=== PATIENT | male | born 1995 | race Caucasian/White ===

== ENCOUNTER 2019-01-15 21:45 | Emergency (ER) | payer SELFPAY ==
[~2019-01-15] VITALS: Ht 188 cm; Wt 90.7 kg
--- NOTE | 2019-01-15 21:50 | NUR ---
ED Nurse Note: Pt found on the ground outside of restaurant in pool of emesis. A&Ox3. Pt VSS, on room air no distress, homeless. ERMD seen Pt at bedside.
--- NOTE | 2019-01-15 22:23 | Emergency Room Report ---
History of Present Illness General Chief Complaint: Overdose Source: EMS Present Illness HPI Is a 23-year-old male with no past medical history. Patient presents with chief complaint of alcohol intoxication. He was outside of a restaurant and was vomiting. He has a alcohol near him. Someone called 911. Here patient initially was combative and yelling. Then he went to sleep. History is otherwise limited on this patient. There is no trauma. There was vomitus on his shirt. He admits to drinking tonight. Allergies: Coded Allergies: No Known Allergies (Unverified , 01/15/19) Patient History Past Medical History: see triage record, old chart reviewed Past Surgical History: unable to obtain Pertinent Family History: unable to obtain Social History: Reports: alcohol use Immunizations: other Reviewed Nursing Documentation: PMH: Agreed; PSxH: Agreed Nursing Documentation-PMH Past Medical History: No Stated History Review of Systems All Other Systems: limited - Limited by his intoxication Physical Exam Vital Signs Date Time Temp Pulse Resp B/P (MAP) Pulse Ox O2 Delivery O2 Flow Rate FiO2 01/15/19 21:40 98.8 81 12 140/82 (101) 98 Room Air Vitals normal Sp02 EP Interpretation: reviewed, normal General Appearance: well appearing, alert, other - Intoxicated Head: normocephalic, atraumatic Eyes: bilateral eye PERRL, bilateral eye EOMI ENT: hearing grossly normal, normal pharynx Neck: full range of motion, supple, no meningismus Respiratory: chest non-tender, lungs clear, normal breath sounds Cardiovascular #1: regular rate, rhythm, no murmur Gastrointestinal: normal bowel sounds, non tender, no mass, no organomegaly, no bruit, non-distended Musculoskeletal: back normal, gait/station normal, normal range of motion Psychiatric: mood/affect normal Medical Decision Making Diagnostic Impression: Primary Impression: Alcohol intoxication Qualified Codes: F10.920 - Alcohol use, unspecified with intoxication, uncomplicated ER Course Patient with alcohol intoxication. He is improving slowly. Is able to stand up and urinate in the urinal. He promptly went back to sleep. No evidence of any trauma to warrant x-ray or CT scan. Will observe until clinical sobriety. Will discharge home afterward. Last Vital Signs Date Time Temp Pulse Resp B/P (MAP) Pulse Ox O2 Delivery O2 Flow Rate FiO2 01/15/19 21:40 98.8 81 12 140/82 101 98 Room Air Status: improved Disposition: HOME, SELF-CARE Condition: Stable Additional Instructions: Follow up with your doctor in 7 days. Abstain from alcohol. Return if worse. Roland Bowling MD Jan 15, 2019 22:23
[2019-01-15 22:30] VITALS: BP 134/68
[2019-01-16 00:39] VITALS: BP 133/71
--- NOTE | 2019-01-16 00:40 | NUR ---
ED Nurse Note: Pt awake and pee on floor, house keeper notified and clean Pt.
[2019-01-16 02:38] VITALS: BP 128/79
--- NOTE | 2019-01-16 02:39 | NUR ---
ED Nurse Note: Pt asleep when visited, VSS.
--- NOTE | 2019-01-16 02:50 | NUR ---
ED Nurse Note: Received patient from SANAZ Hernandez, patient at no distress at this time and is sleeping in bed.
--- NOTE | 2019-01-16 04:38 | NUR ---
ED Nurse Note: Patient sleeping calmly in bed in no distress
[2019-01-16 05:30] VITALS: BP 120/73
--- NOTE | 2019-01-16 05:35 | NUR ---
Homeless Discharge: Patient is being discharged from medical care. Awake, alert and oriented x3. After care instructions, including referral to community resources were given. Patient verbalized understanding of After care instructions; at this time patient does not request medications, equipment or placement. Patient signed patient consent in the medical record for patient destination upon discharge. All medical devices such as ID band were removed. Patient ambulated out with all personal belongings with steady gait.
== END 2019-01-16 05:30 | disposition home or self-care (01) ==
LOC: EDBD 21:45 → EMR 22:19
DX: F10.920 Alcohol use, unspecified with intoxication, uncomplicated (principal)
CPT/HCPCS: 99283

== ENCOUNTER → 2020-01-22 | Emergency (ER) | payer OTHER, SELFPAY ==
[~2020-01-22] VITALS: Ht 182.9 cm; Wt 83.9 kg
[~2020-01-22] MED LIST: Bacitracin Oint UD TOPIC ONE; Cephalexin 500mg cap ORAL ONE; DiphenhydrAMINE 50mg/ml Inj IM ONE; DiphenhydrAMINE 50mg/ml Inj ONE; Haloperidol 5mg/ml Inj IM ONE; Haloperidol 5mg/ml Inj ONE; Haloperidol Decanoate (Long Acting) 50mg Inj IM ONE; LORazepam Inj 2mg/ml 1ml IM ONE; Tetanus/Diptheria/Pertussis IM ONE
--- NOTE | 2020-01-22 12:27 | NUR ---
ED Nurse Note: Pt TAM from [facility] for severe hallucinations. Pt is stating he's seeing birds. He is on 5150 hold for SI. Pt currently states he's suicidal but has no plan. [employer] present at bedside. A&ox2. Clothes and belongings placed in locker. Safety precautions in place. Discheveled, multiple sores on upper adn lower extremities.
--- NOTE | 2020-01-22 12:28 | NUR ---
ED Nurse Note: Belongings in locker #2.
[2020-01-22 13:22] LABS: HEMATOCRIT 42.1 % (42.0-52.0); HEMOGLOBIN 14.5 G/DL (14.2-18.0); MEAN CORPUSCULAR VOLUME 87 FL (80-99); MONOCYTES % (AUTO) 6.5 % (1.0-10.0); NEUTROPHILS % (AUTO) 71.4 % (45.0-75.0); PLATELET COUNT 432 K/UL (150-450); RED BLOOD COUNT 4.85 M/UL (4.70-6.10); RED CELL DISTRIBUTION WIDTH 10.9 % (11.6-14.8); WHITE BLOOD COUNT 9.3 K/UL (4.8-10.8)
[2020-01-22 13:33] LABS: ANION GAP 10 mmol/L (5-15); BLOOD UREA NITROGEN 16 mg/dL (7-18); CALCIUM 9.4 MG/DL (8.5-10.1); CARBON DIOXIDE 23 MMOL/L (21-32); CHLORIDE 102 MMOL/L (98-107); CREATININE 1.3 MG/DL (0.55-1.30); POTASSIUM 3.3 MMOL/L (3.5-5.1); SODIUM 135 MMOL/L (136-145)
--- NOTE | 2020-01-22 13:37 | NUR ---
ED Nurse Note: Pt calm enough now to take vitals. Recorded in assessments.
[2020-01-22 13:38] VITALS: BP 119/78
[2020-01-22 13:38] LABS: ALANINE AMINOTRANSFERASE 20 U/L (12-78); ALBUMIN 3.5 G/DL (3.4-5.0); ALBUMIN/GLOBULIN RATIO 0.9 (1.0-2.7); ALKALINE PHOSPHATASE 74 U/L (46-116); ASPARTATE AMINO TRANSFERASE 16 U/L (15-37); BILIRUBIN,TOTAL 0.3 MG/DL (0.2-1.0)
--- NOTE | 2020-01-22 13:55 | Emergency Room Report ---
History of Present Illness General Chief Complaint: Behavioral Complaint Source: Patient (Noemí Nicole) Present Illness HPI 24-year-old male presents to the emergency department brought by EMS and accompanied by police who placed patient on 5150 hold for danger to himself. Bystander called 911 when patient was acting bizarre and talking himself in the middle of the street with cars trying to get by. PD reports that when they approached him he was talking to himself and seemed to be ignoring them. PD reports that the patient was standing in the middle the street when the light turned green. PD reports that the patient explained to them that he was playing [employer] with the white lines in the middle of the road. Patient admits to drug use he does not disclose what he has taken. He denies psychiatric history. He does report history of chronic back pain. He denies trauma or fall. Patient reports that he is homeless. HPI and ROS are limited due to poor patient cooperation, patient being under the influence of drugs/intoxication, and patient being extremely hyperactive and requiring frequent redirection for questioning. He states he does not know when his last Tetanus vaccination was. (Noemí Nicole) Allergies: Coded Allergies: No Known Allergies (Unverified , 01/15/19) COVID-19 Screening Contact w/high risk pt: No Experienced COVID-19 symptoms?: No COVID-19 Testing performed WOOD TYPE CUTTER: No (Noemí Nicole) Patient History Past Medical History: see triage record, unable to obtain Past Surgical History: unable to obtain Pertinent Family History: unable to obtain Social History: Reports: drug use Reviewed Nursing Documentation: PMH: Agreed; PSxH: Agreed (Noemí Nicole) Nursing Documentation-PMH Past Medical History: No History, Except For History Of Psychiatric Problem: Yes (Neomí Nicole) Review of Systems All Other Systems: limited (Noemí Nicole) Physical Exam Vital Signs Date Time Temp Pulse Resp B/P (MAP) Pulse Ox O2 Delivery O2 Flow Rate FiO2 01/22/20 12:12 98.8 116 22 122/76 (91) 100 Room Air 01/22/20 13:38 97 Sp02 EP Interpretation: reviewed, normal General Appearance: alert, GCS 15, non-toxic, other - The patient is disheveled with multiple superficial abrasions and scratches on the dorsum of his hands bilaterally which appear to be grossly contaminated. Head: normocephalic, atraumatic Eyes: bilateral eye normal inspection, bilateral eye PERRL - Dilated pupils ENT: hearing grossly normal, normal voice Neck: full range of motion, other - no signs of PSA's Respiratory: chest non-tender, lungs clear, normal breath sounds, no respiratory distress, no accessory muscle use, no wheezing, speaking full sentences, other - Patient with pectus excavatum Cardiovascular #1: regular rate, rhythm, no edema, tachycardia Cardiovascular #2: 2+ radial (R), 2+ radial (L), 2+ dorsalis pedis (R), 2+ dorsalis pedis (L) Gastrointestinal: normal bowel sounds, non tender, soft, non-distended, no guarding Musculoskeletal: back normal, normal range of motion, gait/station normal - pt. has full motor strength, non-tender Neurologic: alert, motor strength/tone normal, oriented x3, sensory intact, responsive, speech normal, grossly normal Psychiatric: judgement/insight normal, no suicidal/homicidal ideation, anxious - Pt. is agitated, attempted to bite staff., other - unable to fullly examine due to intoxication Skin: other - The patient is grossly contaminated/disheveled. Multiple superficial abrasions and scratches with some crusting or scabbing to the dorsum of the hands bilaterally some mild surrounding erythema. No significant swelling. The abrasions appear to be grossly contaminated. No blisters or vesicles. No obvious abscess (Noemí Nicole) Medical Decision Making PA Attestation Dr. Hammonds Is my supervising Physician whom patient management has been discussed with. (Noemí Nicole) Diagnostic Impression: Primary Impression: Behavioral change Additional Impression: Abrasion of multiple sites of hand and finger Qualified Codes: S60.519A - Abrasion of unspecified hand, initial encounter; S60.419A - Abrasion of unspecified finger, initial encounter ER Course 24-year-old male presents to the emergency department brought by EMS and accompanied by police who placed patient on 5150 hold for danger to himself. Bystander called 911 when patient was acting bizarre and talking himself in the middle of the street with cars trying to get by. PD reports that when they approached him he was talking to himself and seemed to be ignoring them. PD reports that the patient was standing in the middle the street when the light turned green. PD reports that the patient explained to them that he was playing hopscotch with the white lines in the middle of the road. Patient admits to drug use he does not disclose what he has taken. He denies psychiatric history. He does report history of chronic back pain. He denies trauma or fall. Patient reports that he is homeless. HPI and ROS are limited due to poor patient cooperation, patient being under the influence of drugs/intoxication, and patient being extremely hyperactive and requiring frequent redirection for questioning. He states he does not know when his last Tetanus vaccination was. Pt is hyperactive, and has a very anxious and restless affect. He is agitated and violent towards staff. Ddx considered but are not limited to OD, SI/HI, psychosis, UTI, intoxication, Cellulitis just to name a few. Vital signs: are WNL, pt. is afebrile H&PE are most consistent with behavioral/mental health issue, suspected drug intoxication. No evidence of head injury, no focal neurological deficit or evidence of acute abdomen on exam. ORDERS: -CBC, CMP:unremarkable -Total CK: 212 WNL -UA: negative for infection see results attached. -UDS: This patient was positive for amphetamines and THC -Salicylates and Acetaminophen - no acute intoxication. -Serum ETOH: none -COVID-19: negative ED INTERVENTIONS: -1 liter NS bolus - 2mg Ativan Im -5mg Haldol IM -Benadryl 50mg IM -Tdap IM -Keflex 500 mg, bacitracin applied topically, to dorsum of the hands where various grossly contaminated looking abrasions and scratches are. DISPOSITION: This patient is medically cleared for transport to psychiatric facility for psychiatric evaluation. Patient is still on a 5150 hold. -Pt. signed out to attending physician pending psychiatric eval/placement. Labs Test 01/22/20 13:04 01/22/20 13:42 White Blood Count 9.3 K/UL (4.8-10.8) Red Blood Count 4.85 M/UL (4.70-6.10) Hemoglobin 14.5 G/DL (14.2-18.0) Hematocrit 42.1 % (42.0-52.0) Mean Corpuscular Volume 87 FL (80-99) Mean Corpuscular Hemoglobin 29.9 PG (27.0-31.0) Mean Corpuscular Hemoglobin Concent 34.5 G/DL (32.0-36.0) Red Cell Distribution Width 10.9 % (11.6-14.8) Platelet Count 432 K/UL (150-450) Mean Platelet Volume 5.9 FL (6.5-10.1) Neutrophils (%) (Auto) 71.4 % (45.0-75.0) Lymphocytes (%) (Auto) 20.0 % (20.0-45.0) Monocytes (%) (Auto) 6.5 % (1.0-10.0) Eosinophils (%) (Auto) 1.0 % (0.0-3.0) Basophils (%) (Auto) 1.0 % (0.0-2.0) Sodium Level 135 MMOL/L (136-145) Potassium Level 3.3 MMOL/L (3.5-5.1) Chloride Level 102 MMOL/L (98-107) Carbon Dioxide Level 23 MMOL/L (21-32) Anion Gap 10 mmol/L (5-15) Blood Urea Nitrogen 16 mg/dL (7-18) Creatinine 1.3 MG/DL (0.55-1.30) Estimat Glomerular Filtration Rate > 60 mL/min (>60) Glucose Level 92 MG/DL (74-106) Calcium Level 9.4 MG/DL (8.5-10.1) Total Bilirubin 0.3 MG/DL (0.2-1.0) Aspartate Amino Transf (AST/SGOT) 16 U/L (15-37) Alanine Aminotransferase (ALT/SGPT) 20 U/L (12-78) Alkaline Phosphatase 74 U/L (46-116) Total Creatine Kinase 212 U/L (26-308) Total Protein 7.2 G/DL (6.4-8.2) Albumin 3.5 G/DL (3.4-5.0) Globulin 3.7 g/dL Albumin/Globulin Ratio 0.9 (1.0-2.7) Salicylates Level 2.6 ug/mL (2.8-20) Acetaminophen Level < 2 MCG/ML (10-30) Serum Alcohol < 3 mg/dL Urine Opiates Screen Negative (NEGATIVE) Urine Barbiturates Screen Negative (NEGATIVE) Phencyclidine (PCP) Screen Negative (NEGATIVE) Urine Amphetamines Screen Positive (NEGATIVE) Urine Benzodiazepines Screen Negative (NEGATIVE) Urine Cocaine Screen Negative (NEGATIVE) Urine Marijuana (THC) Screen Positive (NEGATIVE) (Noemí Nicole) ER Course This patient is being held on a 5150 hold in the emergency department. The patient was calm but did try to elope during his ED course under my care. He was able to be redirected verbally. He was given oral potassium chloride[facility] for placement and evaluation of this patient. The patient was requesting to go home. However he he did try to elope without shoes or appropriate clothing. He was redirected as discussed. He remained calm and was given meals. (Gloria Hammonds DO) Last Vital Signs Date Time Temp Pulse Resp B/P (MAP) Pulse Ox O2 Delivery O2 Flow Rate FiO2 01/22/20 13:38 98.8 97 20 119/78 97 Room Air 01/22/20 13:38 97 (Noemí Nicole) Disposition: PSYCH HOSP/UNIT Condition: Stable Signed Out To: Dr. Frausto (Noemí Nicole) Referrals: NOT CHOSEN IPA/,REFERRING (PCP) Noemí Nicole Jan 22, 2020 13:55 Gloria Hammonds DO Jan 23, 2020 10:23
--- NOTE | 2020-01-22 14:10 | NUR ---
ED Nurse Note: COVID swab sent.
[2020-01-22 14:53] LABS: CREATINE KINASE 212 U/L (26-308)
--- NOTE | 2020-01-22 15:54 | NUR ---
ED Nurse Note: Pt lying in bed, eyes closed. No acute distress. Safety precautions in place.
[2020-01-22 15:55] VITALS: BP 130/91
--- NOTE | 2020-01-22 17:00 | NUR ---
ED Nurse Note: Pt is sleeping in bed. Refuses food at this time. Safety precautions in place.
[2020-01-22 18:16] VITALS: BP 135/93
--- NOTE | 2020-01-22 18:34 | NUR ---
ED Nurse Note: Pt lying in bed, eyes closed. bedding changed. pt VSS.
--- NOTE | 2020-01-22 19:30 | NUR ---
ED Nurse Note: Recieved report from am nurse to resume care, pt resting in bed quietly, appears to be sleeping,a rouses to severe tactile stimuli, answers with moans and groans only, falls back to sleep, has patent saline lock in left ac area, v/s stable, no sob or labored breathing, opt isw on 5150 hold for DTS, sitter is available at bedside, room safety check done, will resume caare as ordered and continue to closely monitor while waiting for placement.
[2020-01-22 20:00] VITALS: BP 144/88
--- NOTE | 2020-01-22 23:10 | NUR ---
ED Nurse Note: pT AWAKENED IN ROOM ON HIS OWN, ASKED TO USE RESTROOM, REMAINS AGITATED AND POOR HISTORIAN, USED URINAL AND BACK TO SLEEP, DOES NOT ANSWER ANY QUESTIONS, NO S/S OF ANY DISTRESS NOTED, REMAINS ON SUICIDAL [id number] WITH SITTER AT BEDSIDE, WILL CONTINUE TO MONITOR WHILE WAITING FOR PSYCH PLACEMENT, PT IOFFERED FLUIDS AND FOOD, DID NOT TAKE OR EAT.
[2020-01-22 23:45] VITALS: BP 133/81
[2020-01-23 03:00] VITALS: BP 135/79
--- NOTE | 2020-01-23 03:15 | NUR ---
ED Nurse Note: Pt continues to sleep, arouses to tactile stimuli, does not answer questions only demands what he wants :urinal,etc, pt does cooperate, is calm, v/s taken and recorded, pt [place] fluids well and tolerated them, declined sandwich or food, immediately falls back to sleep, sitte remains at bedside and pt remains on suicidal precautions and 5150 hold, will continue to closely monitor while waiting for placement for pt.
[2020-01-23 06:10] VITALS: BP 143/82
--- NOTE | 2020-01-23 06:10 | NUR ---
ED Nurse Note: pt awakened in bed, used urinal, v/s taken, pt more awake and alert, pt does not remember why he is here, denies pain, no cp, no sob or labored breathing, saline lock intact and patent, pt took fluids, pt is very calm and cooperative aad states "i just want to sleep" when asked any questions about S.I, sitter remains at bedside, will continue to monitor ane remain on suicidal precautions while waiting for psychiatric placement.
--- NOTE | 2020-01-23 07:24 | NUR ---
ED Nurse Note: Report received from SANAZ Vaughn. Patient is awake laying comfortably in bed eating breakfast. Patient in stable condition, will continue to monitor. Addendum: 01/23/20 at 0728 by [facility] ED Nurse Note: Report received from SANAZ Vaughn. Patient is awake laying comfortably in bed eating breakfast. Patient in stable condition. Safety precautions in place, will continue to monitor.
--- NOTE | 2020-01-23 07:29 | NUR ---
ED Nurse Note: pt ate 100% of breakfast.
--- NOTE | 2020-01-23 08:21 | NUR ---
ED Nurse Note: pt able to perform general hygiene independently, toiletry items provided. Pt walked to restroom, gait is strong and steady.
[2020-01-23 09:36] VITALS: BP 131/76
--- NOTE | 2020-01-23 10:30 | NUR ---
ED Nurse Note: PT. IS AAOX4. AMBULATORY. PT DENIES SI OR SI. NO THOUGHTS OF HARMING HIS SELF OR OTHERS
--- NOTE | 2020-01-23 10:56 | NUR ---
ED Nurse Note: PT. WAS ASSESSED BY DR. HAMMER. PT.'S 5150 HOLD IS LIFTED
--- NOTE | 2020-01-23 11:45 | NUR ---
ED Nurse Note: pt refused medication, refused to change into clothes. IV removed. Addendum: 01/23/20 at 1157 by [facility] ED Nurse Note: pt refused medication and mini-cog exam, refused to change into clothes. IV removed. Pt is able to walk steady, pt is alert and oriented x3, able to independently care for himself.
[2020-01-23 11:46] LABS: APPEARANCE,URINE SLIGHTLY CLOUDY; BILIRUBIN, URINE NEGATIVE (NEGATIVE); COLOR,URINE PALE YELLOW; GLUCOSE, URINE (UA) NEGATIVE (NEGATIVE); KETONES,URINE NEGATIVE (NEGATIVE); LEUKOCYTE ESTERASE ,URINE NEGATIVE (NEGATIVE); NITRITE,URINE NEGATIVE (NEGATIVE); PH,URINE 7 (4.5-8.0); PROTEIN,URINE NEGATIVE (NEGATIVE); UROBILINOGEN,URINE NORMAL MG/DL (0.0-1.0)
[2020-01-23 12:30] VITALS: BP 131/76
--- NOTE | 2020-01-23 12:30 | NUR ---
ED Nurse Note: haldol medication sent back to pharmacy to waste.
--- NOTE | 2020-01-24 05:00 | Consultation ---
DATE OF CONSULTATION: 01/23/2020 CONSULTING PHYSICIAN: Wolfgang Cordova M.D. HISTORY OF PRESENT ILLNESS: This is a 24-year-old male with a history of crystal meth dependence, who has been admitted to the hospital on a 5150. The patient was brought in on 01/22/2020 with . During the evaluation, the patient is presenting with disorganized speech and behavior. The patient does not endorse any suicidal or homicidal ideation. He is delusional and responds to internal stimuli. PAST PSYCHIATRIC HISTORY: He did not disclose the hospitalization. He denied suicide attempt. He is not . Currently, he is noncompliant with medication. PAST MEDICAL HISTORY: Nonsignificant. He had several track morales on his as well as his arms, as well as abrasions on multiple sites of . SUBSTANCE ABUSE HISTORY: Significant for methamphetamine. His system is positive for marijuana as well as methamphetamine. He admitted that he has been using meth and he is using it intravenously. MENTAL STATUS EXAMINATION: The patient is alert and oriented times self, place, and situation. Mood is dysphoric. Affect is blunted, congruent with mood. Thought process is concrete. Thought content, there was no suicidal or homicidal ideation. Positive for delusion. Cognition is intact. Insight and judgment is impaired. ASSESSMENT: 1. AXIS I: Methamphetamine dependence. 2. Cannabis dependence, illicit drug abuse. PLAN: 1. The patient's 5150 will be discontinued. 2. The patient will be discharged plan of care. 3. Provide the patient with reality orientation and supportive therapy. Wolfgang Cordova M.D. DR: LEESA JOB#: [id number] CC:
== END | disposition short-term general hospital (02) ==
LOC: EDUNIT# 12:12 → EDBD 12:15 → EMR 13:03
DX: F15.20 Other stimulant dependence, uncomplicated (principal); F12.20 Cannabis dependence, uncomplicated; S60.512A Abrasion of left hand, initial encounter; S60.511A Abrasion of right hand, initial encounter; X58.XXXA Exposure to other specified factors, initial encounter; Y92.9 Unspecified place or not applicable; Z59.0 Homelessness; Z23 Encounter for immunization
CPT/HCPCS: 36415; 80053; 80307; 82550; 85025; 90471; 90715; 96360; 96372; G0480; G0481; J1200; J1630; J7030; U0002; Z7502; 81001; 99285; J8499

== ENCOUNTER 2020-01-27 10:26 | Emergency (ER) | payer OTHER ==
[~2020-01-27] VITALS: Ht 182.9 cm; Wt 81.6 kg
[2020-01-27] MEDS ORDERED: Haloperidol 5mg/ml Inj IM ONE (10:30)
[2020-01-27] MEDS ORDERED: DiphenhydrAMINE 50mg/ml Inj IVP ONE (10:30)
[2020-01-27] MEDS ORDERED: LORazepam Inj 2mg/ml 1ml IV ONE (10:30)
[2020-01-27] MEDS ORDERED: LORazepam 1mg tab ORAL ONE (10:30)
--- NOTE | 2020-01-27 10:35 | Emergency Room Report ---
History of Present Illness General Chief Complaint: Behavioral Complaint Source: Patient, EMS, Law Enforcement Present Illness HPI Patient is an approximately 34-year-old male unknown past medical history who was brought in by [employer] and [employer] for behavioral disturbances. Patient went to a coffee shop and was acting erratically he was asked to leave and return to start acting erratically again. 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 Per paramedics patient was combative with [employer] and was tackled to the ground. No loss of consciousness or head trauma. He does have a spit guard in place. Patient is uncooperative with questioning. [employer] initially said that they were going to arrest him but are now placing him on a 5150 psychiatric hold. History is limited due to the fact that the patient is not cooperative with questioning. He only keeps saying that he needs monies that he can eat. Allergies: Coded Allergies: UNABLE TO ASSESS (Unverified , 01/27/20) COVID-19 Screening Contact w/high risk pt: No Experienced COVID-19 symptoms?: No COVID-19 Testing performed EYELETTER: No Patient History Reviewed Nursing Documentation: PMH: Agreed; PSxH: Agreed Review of Systems All Other Systems: limited - non-cooperative Physical Exam Vital Signs Date Time Temp Pulse Resp B/P (MAP) Pulse Ox O2 Delivery O2 Flow Rate FiO2 01/27/20 10:22 110 18 134/68 (90) 98 Room Air Sp02 EP Interpretation: reviewed, normal General Appearance: other - Disheveled spit bag in place, acting erratically Head: normocephalic, atraumatic Eyes: bilateral eye normal inspection, bilateral eye PERRL ENT: hearing grossly normal, normal pharynx, no angioedema, normal voice Neck: full range of motion, supple/symm/no masses Respiratory: chest non-tender, lungs clear, normal breath sounds, speaking full sentences Cardiovascular #1: tachycardia Gastrointestinal: normal bowel sounds, non tender, soft, non-distended, no guarding, no rebound Rectal: deferred Neurologic: vehicle damage appraiser III-XII nml as tested Psychiatric: anxious, other - Erratic behavior Skin: no rash Lymphatic: no adenopathy Medical Decision Making Diagnostic Impression: Primary Impression: Behavioral disorder Additional Impressions: Methamphetamine abuse Tetrahydrocannabinol (THC) dependence Leukocytosis ER Course Patient placed on 5150 by [employer]. Patient was given Benadryl, Haldol and Ativan for sedation as he was interfering with his own medical care. Patient's labs demonstrate leukocytosis. He is afebrile. Chest x-ray demonstrates no acute cardiopulmonary pathology. Urinalysis demonstrates no evidence for UTI. He is positive for methamphetamines and THC. Patient medically cleared. Patient signed out to the oncoming physician at 1400. Laboratory Tests Test 01/27/20 10:39 01/27/20 11:02 White Blood Count 15.2 K/UL (4.8-10.8) H Red Blood Count 4.94 M/UL (4.70-6.10) Hemoglobin 14.7 G/DL (14.2-18.0) Hematocrit 42.2 % (42.0-52.0) Mean Corpuscular Volume 86 FL (80-99) Mean Corpuscular Hemoglobin 29.8 PG (27.0-31.0) Mean Corpuscular Hemoglobin Concent 34.9 G/DL (32.0-36.0) Red Cell Distribution Width 10.8 % (11.6-14.8) L Platelet Count 424 K/UL (150-450) Mean Platelet Volume 5.7 FL (6.5-10.1) L Neutrophils (%) (Auto) 79.4 % (45.0-75.0) H Lymphocytes (%) (Auto) 12.0 % (20.0-45.0) L Monocytes (%) (Auto) 6.9 % (1.0-10.0) Eosinophils (%) (Auto) 0.5 % (0.0-3.0) Basophils (%) (Auto) 1.2 % (0.0-2.0) Sodium Level 141 MMOL/L (136-145) Potassium Level 3.8 MMOL/L (3.5-5.1) Chloride Level 104 MMOL/L (98-107) Carbon Dioxide Level 25 MMOL/L (21-32) Anion Gap 13 mmol/L (5-15) Blood Urea Nitrogen 23 mg/dL (7-18) H Creatinine 1.2 MG/DL (0.55-1.30) Estimated Glomerular Filtration Rate > 60 mL/min (>60) Glucose Level 93 MG/DL (74-106) Calcium Level 9.5 MG/DL (8.5-10.1) Magnesium Level 2.0 MG/DL (1.8-2.4) Total Bilirubin 0.4 MG/DL (0.2-1.0) Aspartate Amino Transferase (AST) 39 U/L (15-37) H Alanine Aminotransferase (ALT) 36 U/L (12-78) Alkaline Phosphatase 77 U/L (46-116) Total Protein 7.1 G/DL (6.4-8.2) Albumin 3.7 G/DL (3.4-5.0) Globulin 3.4 g/dL Albumin/Globulin Ratio 1.1 (1.0-2.7) Salicylates Level 1.9 ug/mL (2.8-20) L Acetaminophen Level < 2 MCG/ML (10-30) L Serum Alcohol < 3 mg/dL Urine Color Pale yellow Urine Appearance Clear Urine pH 6.5 (4.5-8.0) Urine Specific [place] 1.020 (1.005-1.035) Urine Protein Negative (NEGATIVE) Urine Glucose (UA) Negative (NEGATIVE) Urine Ketones Negative (NEGATIVE) Urine Blood Negative (NEGATIVE) Urine Nitrite Negative (NEGATIVE) Urine Bilirubin Negative (NEGATIVE) Urine Urobilinogen Normal MG/DL (0.0-1.0) Urine Leukocyte Esterase Negative (NEGATIVE) Urine Opiates Screen Negative (NEGATIVE) Urine Barbiturates Screen Negative (NEGATIVE) Phencyclidine (PCP) Screen Negative (NEGATIVE) Urine Amphetamines Screen Positive (NEGATIVE) H Urine Benzodiazepines Screen Negative (NEGATIVE) Urine Cocaine Screen Negative (NEGATIVE) Urine Marijuana (THC) Screen Positive (NEGATIVE) H Chest X-Ray Diagnostic Results Chest X-Ray Diagnostic Results : Chest X-Ray Ordered: Yes # of Views/Limited/Complete: 1 View Indication: Other - Altered mental status EP Interpretation: Yes Interpretation: no consolidation, no effusion, no pneumothorax, no acute cardiopulmonary disease Impression: No acute disease Electronically Signed by: Kisha Sullivan MD Last Vital Signs Date Time Temp Pulse Resp B/P (MAP) Pulse Ox O2 Delivery O2 Flow Rate FiO2 01/27/20 10:22 110 18 134/68 (90) 98 Room Air Signed Out To: Dr. Frausto at 1400 pending reevaluation and final disposition Additional Instructions: Please note that this report is being documented using [employer] technology. This can lead to erroneous entry secondary to incorrect interpretation by the dictating instrument. Kisha Sullivan M.D. Jan 27, 2020 10:35
[2020-01-27 10:45] VITALS: BP 128/82
--- NOTE | 2020-01-27 10:45 | NUR ---
ED Nurse Note: Pt brought in by [employer] and ambulance for AMS. Pt kept entering [employer] and yelling and kept jumping into traffic. Pt currently is highly anxious, rambling, inappropriate, not responding to questions.
--- NOTE | 2020-01-27 10:46 | NUR ---
ED Nurse Note: [address] Pt belongings placed in locker #1.
[2020-01-27 11:00] LABS: BASOPHILS % (AUTO) 1.2 % (0.0-2.0); EOSINOPHILS % (AUTO) 0.5 % (0.0-3.0); HEMATOCRIT 42.2 % (42.0-52.0); HEMOGLOBIN 14.7 G/DL (14.2-18.0); MEAN CORPUSCULAR VOLUME 86 FL (80-99); MONOCYTES % (AUTO) 6.9 % (1.0-10.0); NEUTROPHILS % (AUTO) 79.4 % (45.0-75.0); PLATELET COUNT 424 K/UL (150-450); RED BLOOD COUNT 4.94 M/UL (4.70-6.10); RED CELL DISTRIBUTION WIDTH 10.8 % (11.6-14.8); WHITE BLOOD COUNT 15.2 K/UL (4.8-10.8)
[2020-01-27 11:02] LABS: ANION GAP 13 mmol/L (5-15); BLOOD UREA NITROGEN 23 mg/dL (7-18); CALCIUM 9.5 MG/DL (8.5-10.1); CARBON DIOXIDE 25 MMOL/L (21-32); CHLORIDE 104 MMOL/L (98-107); CREATININE 1.2 MG/DL (0.55-1.30); POTASSIUM 3.8 MMOL/L (3.5-5.1); SODIUM 141 MMOL/L (136-145)
--- NOTE | 2020-01-27 11:05 | NUR ---
ED Nurse Note: Urine sent.
[2020-01-27 11:13] LABS: ALANINE AMINOTRANSFERASE 36 U/L (12-78); ALBUMIN 3.7 G/DL (3.4-5.0); ALBUMIN/GLOBULIN RATIO 1.1 (1.0-2.7); ALKALINE PHOSPHATASE 77 U/L (46-116); ASPARTATE AMINO TRANSFERASE 39 U/L (15-37); BILIRUBIN,TOTAL 0.4 MG/DL (0.2-1.0)
--- NOTE | 2020-01-27 12:20 | NUR ---
ED Nurse Note: Pt layin gin bed, eyes closed. NO acute distress. Safety precautions in place.
--- NOTE | 2020-01-27 12:32 | Diagnostic Imaging Report ---
EXAM: XR Chest, 1 View CLINICAL HISTORY: PAIN TECHNIQUE: Frontal view of the chest. COMPARISON: None FINDINGS: Hardware: None. Lungs/pleura: Normal. No focal consolidation. No pleural effusion or pneumothorax. Heart/mediastinum: Normal. No cardiomegaly. Soft tissues: Unremarkable. Bones: No acute fracture. Upper abdomen: Normal. IMPRESSION: No acute disease identified.
[2020-01-27 13:00] VITALS: BP 125/74
[2020-01-27 13:15] LABS: APPEARANCE,URINE CLEAR; BILIRUBIN, URINE NEGATIVE (NEGATIVE); COLOR,URINE PALE YELLOW; GLUCOSE, URINE (UA) NEGATIVE (NEGATIVE); KETONES,URINE NEGATIVE (NEGATIVE); LEUKOCYTE ESTERASE ,URINE NEGATIVE (NEGATIVE); NITRITE,URINE NEGATIVE (NEGATIVE); PH,URINE 6.5 (4.5-8.0); PROTEIN,URINE NEGATIVE (NEGATIVE); UROBILINOGEN,URINE NORMAL MG/DL (0.0-1.0)
--- NOTE | 2020-01-27 13:30 | NUR ---
ED Nurse Note: Pt laying in bed. No acute distress. Still not answering questions regarding identity.
--- NOTE | 2020-01-27 14:32 | NUR ---
ED Nurse Note: COVID swab sent.
[2020-01-27] MEDS ORDERED: Bacitracin Oint UD TOPIC ONE (15:30)
[2020-01-27 16:17] VITALS: BP 124/71
--- NOTE | 2020-01-27 17:16 | NUR ---
ED Nurse Note: Pt laying in bed, pt still unable to provided first and last name. Food offered to patient but patient refused.
[2020-01-27 19:13] VITALS: BP 128/76
--- NOTE | 2020-01-27 19:13 | NUR ---
ED Nurse Note: Pt laying in bed. No acute distress. Safety precautions in place.
--- NOTE | 2020-01-27 20:26 | NUR ---
ED Nurse Note: pt sleeping in bed, sitter at bedside. VSS no ss of distress noted. will continue to monitor.
[2020-01-27 21:26] VITALS: BP 119/72
--- NOTE | 2020-01-27 22:26 | NUR ---
ED Nurse Note: Pt resting in bed with sitter at bedside. safety precautions in place. will continue to monitor.
[2020-01-27 23:26] VITALS: BP 121/76
--- NOTE | 2020-01-27 23:35 | NUR ---
ED Nurse Note: Pt awoke requesting urinal. Urinal provided. Pt output: 1L urine. Pt resting in bed with sitter at bedside. Pt able to state first name only: Masoud. Will reassess and continue to monitor.
--- NOTE | 2020-01-28 00:25 | NUR ---
ED Nurse Note: pt resting in bed, VSS no ss of distress noted. sitter at bedside. safety precautions in place. will continue to monitor.
--- NOTE | 2020-01-28 01:25 | NUR ---
ED Nurse Note: pt resting in bed, no ss of distress noted. sitter at bedside. safety precautions in place.
[2020-01-28 01:45] VITALS: BP 114/65
--- NOTE | 2020-01-28 02:26 | NUR ---
ED Nurse Note: pt resting in bed, VSS no ss of distress noted. Sitter at bedside. safety precautions in place.
[2020-01-28 03:45] VITALS: BP 112/63
--- NOTE | 2020-01-28 04:45 | NUR ---
ED Nurse Note: pt sleeping in bed, sitter at bedside. safety precautions in place. will continue to monitor. no ss of distress noted.
[2020-01-28 05:45] VITALS: BP 114/72
--- NOTE | 2020-01-28 06:07 | NUR ---
ED Nurse Note: Pt sleeping in bed, VSS no ss of distress noted. sitter at bedside. safety precautions in place. will continue to monitor.
--- NOTE | 2020-01-28 07:10 | NUR ---
HAND-OFF: Report given to SANAZ Farfan.
[2020-01-28 07:14] VITALS: BP 145/90
--- NOTE | 2020-01-28 07:16 | NUR ---
ED Nurse Note:pt. is still sleeping no agitation, VSS, sitter is im the room
--- NOTE | 2020-01-28 09:49 | NUR ---
ED Nurse Note:pt. is awake and eating breakfast, asking for pain meds for general pain
[2020-01-28] MEDS ORDERED: Acetaminophen 500mg (ES) tab ORAL ONE (10:00)
--- NOTE | 2020-01-28 11:00 | NUR ---
ED Nurse Note:dr. Cordova evaluated pt. via zoom and lifted 51/50 hold
[2020-01-28 11:55] VITALS: BP 145/89
--- NOTE | 2020-01-28 11:55 | NUR ---
ED Nurse Note: Pt cleared by health care Provider for discharge. DC instructions was given and explained to pt and verbalized understanding of teachings. All medical deviecs such as ID band removed. Pt is AAO x4, ambulatory and left with all personal belongings.
== END 2020-01-28 12:00 | disposition home or self-care (01) ==
LOC: EDBD 10:26 → MERGE 10:35 → EMR 10:35 → EDBD 10:35 → EMR 01-28 12:00
DX: F91.9 Conduct disorder, unspecified (principal); F15.10 Other stimulant abuse, uncomplicated; F12.20 Cannabis dependence, uncomplicated; D72.829 Elevated white blood cell count, unspecified
CPT/HCPCS: 36415; 71045; 80053; 80307; 81003; 83735; 85025; 96361; 96372; 96374; 96375; G0480; G0481; J1200; J1630; J7030; U0002; Z7502; 99285